=== PATIENT | male | born 1980 | race Caucasian/White ===

== ENCOUNTER 2017-06-19 04:23 | Emergency (ER) | payer MEDICAID, OTHER ==
[~2017-06-19] VITALS: Ht 177.8 cm; Wt 81.2 kg
[2017-06-19 04:24] VITALS: BP 115/75
[2017-06-19] MEDS ORDERED: BICILLIN-LA 1,200,000 UNITS/2 ML IM ONE (05:30)
[2017-06-19] MEDS ORDERED: HYDROcodone/APAP 5/325 TABLET PO ONE (05:30)
[2017-06-19] MEDS ORDERED: HYDROcodone/APAP 5/325 TABLET ONE (05:57)
== END 2017-06-19 06:27 | disposition home or self-care (01) ==
LOC: ED 05:18
DX: J02.0 Streptococcal pharyngitis (principal)
CPT/HCPCS: 96372; 99283; J0561; J7512